=== PATIENT | male | born 1960 | race Caucasian/White ===

== ENCOUNTER 2022-05-20 12:25 | Emergency (ER) | payer MEDICAID, OTHER ==
[~2022-05-20] VITALS: Ht 170.2 cm; Wt 59.1 kg
[2022-05-20 12:36] VITALS: BP 99/62
[2022-05-20] MEDS ORDERED: ondansetron 4mg rapidly disintigrating tab PO ONE (13:35)
[2022-05-20] MEDS ORDERED: ONDA4TAB12 PO (13:45)
--- NOTE | 2022-05-20 13:46 | NUR ---
Met with patient in regards to alcohol/substance use and patient requesting resources. I gave patient [facility] number to get the process started. I talked to patient about medication to help with cravings. I also gave him a card for [facility] and my card to call me with any questions.
== END 2022-05-20 14:12 | disposition home or self-care (01) ==
LOC: ER 12:27
DX: Z00.00 Encounter for general adult medical examination without abnormal findings (principal); F15.10 Other stimulant abuse, uncomplicated; R11.2 Nausea with vomiting, unspecified; Z88.0 Allergy status to penicillin
CPT/HCPCS: 99283